=== PATIENT | male | born 1975 | race Caucasian/White ===

== ENCOUNTER 2018-05-12 15:05 | Emergency (ER) | payer OTHER ==
[~2018-05-12] VITALS: Wt 111.1 kg
[~2018-05-12 15:05] MED LIST: CLARITIN10 MG PO; NKHM PO; OXYCODONE30 MG PO; PROVENTIL0.09 MG/AC IH; TOBRADEX 0.1%-0.5 ML OPH; ZITHROMAX Z PA250 MG PO
[2018-05-12] MEDS ORDERED: MEDROL DOSEPAK4 MG PO (16:08)
[2018-05-12] MEDS ORDERED: ROBAXIN500 M1 PO (16:08)
[2018-06-19] MEDS ORDERED: CEFADROXIL500 M1 PO (00:15)
[2018-06-19] MEDS ORDERED: NORCO 5-325 TA1 EACH PO (00:15)
[2018-06-19] MEDS ORDERED: SEPTDS PO (00:15)
== END 2018-05-12 16:25 | disposition home or self-care (01) ==
LOC: ED 15:05
DX: M54.16 Radiculopathy, lumbar region (principal); M79.652 Pain in left thigh; Z91.018 Allergy to other foods

== ENCOUNTER → 2018-05-20 | Outpatient (CLI) | payer OTHER ==
[~2018-05-20] MED LIST changes: +CEFADROXIL500 M1 PO; +MEDROL DOSEPAK4 MG PO; +NORCO 5-325 TA1 EACH PO; +ROBAXIN500 M1 PO; +SEPTDS PO
== END | disposition home or self-care (01) ==
LOC: RESCLI 01:28
DX: Z76.89 Persons encountering health services in other specified circumstances (principal); E66.3 Overweight; R00.0 Tachycardia, unspecified; M79.2 Neuralgia and neuritis, unspecified; F17.200 Nicotine dependence, unspecified, uncomplicated; Z71.6 Tobacco abuse counseling; Z88.8 Allergy status to other drugs, medicaments and biological substances

== ENCOUNTER 2019-05-06 19:51 | Emergency (ER) | payer OTHER ==
[~2019-05-06] VITALS: Ht 195.5 cm; Wt 113.4 kg
== END 2019-05-06 23:48 | disposition home or self-care (01) ==
LOC: ED 19:51
DX: R11.2 Nausea with vomiting, unspecified (principal); T40.4X5A Adverse effect of other synthetic narcotics, initial encounter; R51 Headache; F17.200 Nicotine dependence, unspecified, uncomplicated; Z91.041 Radiographic dye allergy status; Z88.8 Allergy status to other drugs, medicaments and biological substances; Z91.018 Allergy to other foods; Y92.89 Other specified places as the place of occurrence of the external cause

== ENCOUNTER 2020-03-28 13:17 | Emergency (ER) | payer OTHER ==
[~2020-03-28] VITALS: Ht 195.5 cm; Wt 122.5 kg
[2020-03-28] MEDS ORDERED: SEPTDS PO (15:04)
[2020-03-28] MEDS ORDERED: CEPHALEXIN500 M1 PO (15:04)
== END 2020-03-28 15:06 | disposition home or self-care (01) ==
LOC: ED 13:17
DX: S30.861A Insect bite (nonvenomous) of abdominal wall, initial encounter (principal); R60.0 Localized edema; F17.200 Nicotine dependence, unspecified, uncomplicated; Z91.041 Radiographic dye allergy status; Z88.8 Allergy status to other drugs, medicaments and biological substances; Z91.018 Allergy to other foods; W57.XXXA Bitten or stung by nonvenomous insect and other nonvenomous arthropods, initial encounter; Y93.89 Activity, other specified; Y92.89 Other specified places as the place of occurrence of the external cause; Y99.8 Other external cause status

== ENCOUNTER → 2022-07-03 | Day surgery (SDC) | payer OTHER ==
[2022-07-02 09:18] LABS: BASO # 0.1 10*3/uL (0.0-0.1); BASO % 0.5 % (0.0-1.0); EOS # 0.4 10*3/uL (0.0-0.4); EOS % 3.9 % (1.0-4.0); HEMATOCRIT 42.6 % (42.0-52.0); LYMPH # 3.6 10*3/uL (1.3-4.4); LYMPH % 36.5 % (27.0-41.0); MEAN CELL VOLUME 86.8 fl (80.0-94.0); MEAN CORPUSCULAR HGB 28.9 pg (27.0-31.0); MEAN CORPUSCULAR HGB CONC 33.3 g/dl (33.0-37.0); MEAN PLATELET VOLUME 10.2 fl (9.6-12.3); MONO # 0.7 10*3/uL (0.1-1.0); NEUT # 5.1 10*3/uL (2.3-7.9); NEUT % 51.9 % (47.0-73.0); PLATELET COUNT AUTOMATED 297 10*3/uL (130-400); RED BLOOD COUNT 4.91 10*6/uL (4.50-5.90); RED CELL DISTRI WIDTH 13.7 % (0-14.5); WHITE BLOOD COUNT 9.8 10*3/uL (4.8-10.8)
[2022-07-02 09:29] LABS: ACT PARTIAL THROMBO TIME 29.3 SECONDS (20.0-32.1)
[~2022-07-03] VITALS: Ht 198.1 cm; Wt 149.2 kg
[~2022-07-03] MED LIST changes: +BUPRENORPHINE HY8 MG PO; +CEPHALEXIN500 M1 PO; +LISINOPRIL10 M1 PO
[2022-07-03 11:20] VITALS: BP 134/63
[2022-07-03 12:33] VITALS: BP 102/57
[2022-07-03 12:48] VITALS: BP 110/67
[2022-07-03 13:03] VITALS: BP 109/76
[2022-07-04 11:07] LABS: ACID FAST SPEC PROCESSING Tissue Grinding (.)
== END | disposition home or self-care (01) ==
LOC: SDC 06-28 11:00
PROVIDERS: ATTEND Podiatrist
DX: M86.672 Other chronic osteomyelitis, left ankle and foot (principal); I10 Essential (primary) hypertension; G43.909 Migraine, unspecified, not intractable, without status migrainosus; M48.00 Spinal stenosis, site unspecified; F17.210 Nicotine dependence, cigarettes, uncomplicated; Z79.01 Long term (current) use of anticoagulants; Z79.899 Other long term (current) drug therapy

== ENCOUNTER 2022-10-27 06:08 | Emergency (ER) | payer OTHER ==
[~2022-10-27] VITALS: Wt 158.8 kg
[2022-10-27 06:41] LABS: BASO % 0.5 % (0.0-1.0); EOS # 0.1 10*3/uL (0.0-0.4); EOS % 0.8 % (1.0-4.0); HEMATOCRIT 46.2 % (42.0-52.0); LYMPH # 1.5 10*3/uL (1.3-4.4); LYMPH % 24.1 % (27.0-41.0); MEAN CELL VOLUME 82.9 fl (80.0-94.0); MEAN CORPUSCULAR HGB 28.4 pg (27.0-31.0); MEAN CORPUSCULAR HGB CONC 34.2 g/dl (33.0-37.0); MEAN PLATELET VOLUME 9.6 fl (9.6-12.3); MONO # 0.7 10*3/uL (0.1-1.0); MONO % 10.5 % (3.0-9.0); NEUT % 63.6 % (47.0-73.0); PLATELET COUNT AUTOMATED 207 10*3/uL (130-400); RED BLOOD COUNT 5.57 10*6/uL (4.50-5.90); RED CELL DISTRI WIDTH 13.2 % (0-14.5); WHITE BLOOD COUNT 6.3 10*3/uL (4.8-10.8)
[2022-10-27 06:57] LABS: ALKALINE PHOSPHATASE 71 U/L (46-116); BUN 9 mg/dl (9-23); CHLORIDE 98 mmol/L (98-107); POTASSIUM 4.1 mmol/L (3.4-5.1); SGPT/ALT 52 U/L (10-49); TOTAL PROTEIN 7.5 gm/dL (6.0-8.0)
[2022-10-27] MEDS ORDERED: VIBRA-TAB100 MG PO (07:28)
== END 2022-10-27 07:45 | disposition home or self-care (01) ==
LOC: ED 06:08
PROVIDERS: Internal Medicine
DX: J18.9 Pneumonia, unspecified organism (principal); Z91.041 Radiographic dye allergy status; Z91.018 Allergy to other foods; Z98.890 Other specified postprocedural states; F12.90 Cannabis use, unspecified, uncomplicated; Z20.822 Contact with and (suspected) exposure to COVID-19

== ENCOUNTER → 2022-10-31 | Outpatient (CLI) | payer OTHER ==
[~2022-10-31] MED LIST changes: +VIBRA-TAB100 MG PO
== END | disposition home or self-care (01) ==
LOC: RAD 10:19
PROVIDERS: ATTEND Internal Medicine
DX: M19.072 Primary osteoarthritis, left ankle and foot (principal); L98.499 Non-pressure chronic ulcer of skin of other sites with unspecified severity